=== PATIENT | male | born 1970 | race Two or more races ===

== ENCOUNTER 2017-08-13 12:39 | Inpatient (IN) | payer OTHER ==
[~2017-08-13] VITALS: Ht 170.2 cm; Wt 72.6 kg
--- NOTE | 2017-08-13 12:50 | NUR ---
[facility] FROM [facility] C/O LEFT HEEL NON HEALING WOUND. HEELS WRAPPED, CLEAN AND DRY. NO S/S OF INFECTION. PATIENT A/OX 4, BREATHING EVEN AND UNLABORED. NO SOB, NAD, VITALS STABLE. SAFETY AND COMFORT MEASURES IN PLACE. AWAITING MD ORDERS.
--- NOTE | 2017-08-13 14:31 | NUR ---
CALLED [facility] FOR TRANSPORT TO [facility], ETA 1500, TRIP #[id number]
--- NOTE | 2017-08-13 14:49 | NUR ---
CALLED [facility] TO CANCEL TRANSPORT
--- NOTE | 2017-08-13 14:55 | NUR ---
ANUM PAGED, DR.SAM Dorman SENIOR ORACLE SOA DEVELOPER
[2017-08-13 15:32] LABS: BASOPHILS # (AUTO) 0.1 /CMM (0.0-0.2); BASOPHILS % (AUTO) 1.3 % (0.0-2.0); EOSINOPHILS % (AUTO) 2.8 % (0.0-6.0); HEMATOCRIT 34 % (39-51); HEMOGLOBIN 12.2 g/dL (13.5-17.5); MEAN CORPUSCULAR HEMOGLOBIN 40 PG (26.0-33.0); MEAN CORPUSCULAR HGB CONC 36 g/dl (31.0-36.0); MEAN CORPUSCULAR VOLUME 111 fL (80-96); MONOCYTES # (AUTO) 1.1 /CMM (0.1-1.30); MONOCYTES % (AUTO) 18.2 % (2.0-12.0); NEUTROPHILS # (AUTO) 3.6 /CMM (1.8-8.9); NEUTROPHILS % (AUTO) 61.7 % (43.0-81.0); PLATELET COUNT (AUTO) 103 /CMM (150-450); RDW COEFFICIENT OF VARIATION 15.1 (11.5-15.0); RED BLOOD CELL COUNT(AUTO) 3.08 MIL/uL (4.5-6.0)
--- NOTE | 2017-08-13 15:44 | NUR ---
NEW IV STARTED ON LAC, 18G.
[2017-08-13 15:45] LABS: INR 1.66 (0.85-1.15)
[2017-08-13 15:46] LABS: CREATININE 0.7 mg/dL (0.6-1.3); POTASSIUM 4.5 mmol/L (3.5-5.1)
--- NOTE | 2017-08-13 15:50 | NUR ---
MS 324-1 FOR NON HEALING WOUND TO L ANKLE, DR.SAM Dorman ADMITTING
--- NOTE | 2017-08-13 16:08 | NUR ---
REPORT GIVEN TO ALBAN MELO FOR SOPHIA UPON ADMISSION.
[2017-08-13] MEDS ORDERED: MULT-213 PO (16:22)
[2017-08-13] MEDS ORDERED: RIFA550T PO (16:22)
[2017-08-13] MEDS ORDERED: CLOT15CR63 TP (16:22)
[2017-08-13] MEDS ORDERED: LACT10SO PO (16:22)
[2017-08-13] MEDS ORDERED: NA P133E RC (16:22)
[2017-08-13] MEDS ORDERED: AMIN30LI2 PO (16:22)
[2017-08-13] MEDS ORDERED: ASCO500T9 PO (16:22)
[2017-08-13] MEDS ORDERED: BISA10SU61 RC (16:22)
[2017-08-13] MEDS ORDERED: NICO-677 TD (16:22)
[2017-08-13] MEDS ORDERED: MAGN400O6 PO (16:22)
[2017-08-13] MEDS ORDERED: SPIR100T3 PO (16:22)
[2017-08-13] MEDS ORDERED: ACET325T53 PO (16:22)
[2017-08-13] MEDS ORDERED: ACET-73 PO (16:22)
[2017-08-13] MEDS ORDERED: ONDANSETRON HCL/PF 4 MG/2 ML VIAL IVP PRN (16:30)
[2017-08-13] MEDS ORDERED: MAGNESIUM HYDROXIDE 30 ML UDC PO PRN ×2 (16:30→18:00)
[2017-08-13] MEDS ORDERED: MAG HYDROX/AL HYDROX/SIMETH 30 ML UDC PO PRN (16:30)
[2017-08-13] MEDS ORDERED: ACETAMINOPHEN 325 MG TABLET PO PRN (16:30)
[2017-08-13] MEDS ORDERED: ZOLPIDEM TARTRATE 5 MG TABLET PO PRN (16:30)
[2017-08-13] MEDS ORDERED: HYDROCODONE/APAP 5/325MG 1 EACH TABLET PO PRN (16:30)
[2017-08-13] MEDS ORDERED: Z GUARD REMEDY 2 OZ OINT TP PRN (16:30)
--- NOTE | 2017-08-13 16:38 | NUR ---
PATIENT TRANSPORTED TO [facility] VIA WHEELCHAIR. [facility] TO PROVIDE SOPHIA.
[2017-08-13 16:59] LABS: BAND % (MANUAL) 6 % (0.0-5.0); EOSINOPHILS % (MANUAL) 4 % (0-4); LYMPHOCYTES % (MANUAL) 22 % (16-48); MONOCYTES % (MANUAL) 10 % (0-11.0); NEUTROPHILS % (MANUAL) 58 (42-76)
[2017-08-13 17:46] VITALS: BP 122/69
[2017-08-13] MEDS ORDERED: NA PHOS,M-B/NA PHOS,DI-BA 1 EA ENEMA RC PRN (18:00)
[2017-08-13] MEDS ORDERED: MISCELLANEOUS MED 1 EA EA PO PRN (18:00)
[2017-08-13] MEDS ORDERED: BISACODYL SUPP (10 MG) 10 MG/SUPP.RECT SUPP.RECT RC PRN (18:00)
--- NOTE | 2017-08-13 18:00 | NUR ---
CUSTOMER EXPERT PATIENT A/OX4, VERBALLY RESPONSIVE, BREATHING EVEN AND UNLABORED, NO DISTRESS NOTED, PATIENT ADMITTED WITH DX OF LEFT FOOT NON-HEALING ULCER UNDER DR. LAVINIA HERNANDEZ. ORDERS RECEIVED AND NOTED. PATIENT'S SKIN ASSESSMENT COMPLETED, PHOTOS TAKEN AND PLACED IN CHART. PATIENT INDEPENDENT WITH BED MOBILITY, AND AMBULATE INDEPENDENTLY. PATIENT'S LEFT AC #18 PATENT AND INTACT, VITALS STABLE, PATIENT IS SCHEDULED TO HAVE SURGERY TOMORROW BY DR. LEON. PATIENT WILL BE NPO AFTER MIDNIGHT TONIGHT. NEEDS ATTENDED AND MET, ATE DINNER AND TOLERATED WELL, CALL LIGHT WITHIN REACH, SAFETY MEASURES IN PLACED, WILL ENDORSE TO ANIMAL ASSISTED THERAPIST FOR SOPHIA.
--- NOTE | 2017-08-13 19:35 | NUR ---
MS/HARPOONER; RECEIVED PT'S REPORTS FROM THE DAY SHIFT RN FOR CONTINUITY OF CARE. AT THIS TIME PT IN BED AWAKE , ALERT AND ORIENTED X3 . PT IS AWARE OF HIS SURGERY TOMORROW AT 0730. PT REMINDED ON NPO AFTER MIDNIGHT TONIGHT. PT IS AWARE URINE SPECIMEN IS STILL NEEDED FOR EXAM. HL ON LAC INTACT FLUSHED WITH NS AND PATENT. LT FOOT SLIGHT SWOLLEN AND ELEVATED WITH PILLOW. HAS MEPILEX DRESSING ON. BED ON LOWER POSITION AND LOCKED FOR SAFETY. SIDE RAILS X 2 ARE UP FOR SAFETY. CONTINUE TO MONITOR . CALL LIGHT WITHIN REACH.
[2017-08-13 20:00] VITALS: BP 134/80
--- NOTE | 2017-08-13 20:45 | NUR ---
MS/ADULT MINISTRIES DIRECTOR; PT SIGNED ALL THE CONSENTS FOR SURGERY TOMORROW.
[2017-08-13] MEDS: RIFAXIMIN 550 MG TABLET PO SCH (21:04)
--- NOTE | 2017-08-13 21:10 | NUR ---
MS/AIRPORT BAGGAGE SCREENER; PT VOIDED 200 ML CLEAR RACHEL URINE. SPECIMEN OBTAINED FOR UA. I CALLED THE LAB. TO DEVELOPMENT SPEC THE SPECIMEN AND A MALE LAB. TECH AWARE AND HE SAID OK I WILL DEVELOPMENT SPEC.
--- NOTE | 2017-08-14 | NUR ---
MS/RELINER; PT IN BED SLEEPING. BREATHING NON LABORED. NPO AFTER MIDNIGHT OBSERVED.
[2017-08-14 05:31] VITALS: BP 117/55
[2017-08-14 06:18] LABS: APPEARANCE,URINE CLEAR (CLEAR); BILIRUBIN,URINE 1+ (NEGATIVE); BLOOD, URINE NEGATIVE Ery/uL (NEGATIVE); COLOR,URINE DARK YELLO (YELLOW); KETONES,URINE NEGATIVE (NEGATIVE); LEUKOCYTE ESTERASE ,URINE NEGATIVE (NEGATIVE); NITRITE, URINE NEGATIVE (NEGATIVE); PROTEIN,URINE NEGATIVE (NEGATIVE); UGLUCOSE NEGATIVE (NEGATIVE)
[2017-08-14 06:25] LABS: BASOPHILS % (AUTO) 0.2 % (0.0-2.0); EOSINOPHILS % (AUTO) 3.4 % (0.0-6.0); HEMATOCRIT 36 % (39-51); HEMOGLOBIN 12.7 g/dL (13.5-17.5); LYMPHOCYTES # (AUTO) 1.1 /CMM (0.8-4.8); LYMPHOCYTES % (AUTO) 17.9 % (20.0-44.0); MEAN CORPUSCULAR HEMOGLOBIN 40 PG (26.0-33.0); MEAN CORPUSCULAR HGB CONC 35 g/dl (31.0-36.0); MEAN CORPUSCULAR VOLUME 114 fL (80-96); MONOCYTES # (AUTO) 1.1 /CMM (0.1-1.30); NEUTROPHILS % (AUTO) 61.5 % (43.0-81.0); PLATELET COUNT (AUTO) 86 /CMM (150-450); RDW COEFFICIENT OF VARIATION 15.6 (11.5-15.0); WHITE BLOOD COUNT (AUTO) 6.4 K/uL (4.3-11.0)
[2017-08-14 06:26] LABS: BACTERIA,URINE None seen /HPF (None Seen); RBC,URINE NONE SEEN /HPF (0-2); SQUAMOUS EPITHELIAL CELL,UR Few /HPF (None Seen); WBC,URINE 0-2 /HPF (0-3)
--- NOTE | 2017-08-14 06:40 | NUR ---
MS/UNIT COORDINATOR; OR CALLED AND REPORTS GIVEN.
[2017-08-14 06:43] LABS: ALANINE AMINOTRANSFERASE 42 U/L (12-78); ALBUMIN 1.7 g/dL (3.4-5.0); ALKALINE PHOSPHATASE 421 U/L (46-116); ASPARTATE AMINOTRANSFERASE 74 U/L (15-37); BILIRUBIN,TOTAL 5.1 mg/dL (0.2-1.0); CALCIUM, SERUM 7.8 mg/dL (8.5-10.1); CARBON DIOXIDE 22 mmol/L (21-32); CHLORIDE 105 mmol/L (98-107); CREATININE 0.7 mg/dL (0.6-1.3); GLUCOSE 83 mg/dL (74-106); MAGNESIUM 1.3 mg/dL (1.8-2.4); PHOSPHORUS 3.4 mg/dL (2.5-4.9); POTASSIUM 4.5 mmol/L (3.5-5.1); SODIUM SERUM 134 mmol/L (136-145); TOTAL PROTEIN, SERUM 7.6 g/dL (6.4-8.2); UREA NITROGEN, BLOOD 10 mg/dL (7-18)
[2017-08-14 06:46] LABS: LDL 23 mg/dL (0-99); THYROID STIMULATING HORMONE 1.928 uIU/mL (0.358-3.74); TRIGLYCERIDES 39 mg/dL (30-150)
--- NOTE | 2017-08-14 06:50 | NUR ---
MS/CUSTOMER PRICING MANAGER; PT SLEPT FINE. DENIES PAIN. AT THIS TIME REPORTS GIVEN TO LORIE BEST
[2017-08-14] MEDS ORDERED: BUPIVACAINE 0.25% 75 MG/30 ML VIAL ONE (06:55)
[2017-08-14] MEDS ORDERED: ANESTHESIA TRAY IN PYXIS 1 EA TRAY MC ONE (06:55)
[2017-08-14] MEDS ORDERED: LIDOCAINE 0.5% HCL 50 ML VIAL ONE (06:56)
[2017-08-14] MEDS ORDERED: MINERAL OIL 10 ML VIAL MC ONE (06:56)
--- NOTE | 2017-08-14 06:59 | NUR ---
MS RN OPENING NOTE RECEIVED BEDSIDE SBAR REPORT ON THE PATIENT. PATIENT IS A/OX4, ORIENTED TO OWN ABILITIES. AWAKE AND RESPONSIVE IN BED. BED IS LOCKED IN LOWEST POSITION, SIDE RAILS UP X2. URINAL AT THE BEDSIDE. PATIENT IS AMBULATORY. DENIES PAIN/DISCOMFORT AT THIS TIME. CHEST RISING EQUALLY, BILATERALLY. SPO2 98% ON ROOM AIR. PATIENT IS SCHEDULED TO GO TO HAVE LLE WOUND DEBRIDEMENT WITH SPLIT THICKNESS SKIN GRAFT PERFORMED BY DR REESE. CONSENT SIGNED. DISCUSSED WITH DR REESE AND THE PATIENT AT THE BEDSIDE. PATIENT VERBALIZED UNDERSTANDING OF THE CONSENT AND PROCEDURE. ALL NEEDS ARE MET. WILL CONTINUE TO ASSES/MONITOR THROUGHOUT THE SHIFT.
--- NOTE | 2017-08-14 07:03 | NUR ---
PATIENT LEFT THE FLOOR VIA BED BEING TRANSPORTED TO OR IN A STABLE CONDITION. DR REESE AWARE.
[2017-08-14 07:05] LABS: HDL CHOLESTEROL 10 mg/dL (40-60)
[2017-08-14 07:33] LABS: EOSINOPHILS % (MANUAL) 1 % (0-4); LYMPHOCYTES % (MANUAL) 10 % (16-48); MONOCYTES % (MANUAL) 11 % (0-11.0); NEUTROPHILS % (MANUAL) 78 (42-76)
[2017-08-14] MEDS ORDERED: LIDOCAINE 0.5%-EPI 1:200,000 50 ML VIAL ONE (07:59)
[2017-08-14 08:00] VITALS: BP 117/55
[2017-08-14] MEDS ORDERED: diphenhydrAMINE HCL 50 MG/ML VIAL ONE (08:48)
[2017-08-14] MEDS ORDERED: HYDROMORPHONE INJ 2 MG/ML DISP.SYRIN ONE (08:51)
[2017-08-14] MEDS: CLOTRIMAZOLE 1% 15 GM TUBE TP SCH (09:00)
[2017-08-14] MEDS: LACTULOSE 10 G/15 ML UDC (PYXIS) PO SCH ×2 (09:36→17:41)
[2017-08-14 09:37] VITALS: BP 142/71
--- NOTE | 2017-08-14 09:37 | NUR ---
PATIENT RETURNED BACK FROM OR. WOUND VAC PRESENT. SET TO 100MM HG CONTINUALLY ORDERED. PATIENT IS ALER, ORIENTED X4, AWAKE AND RESPONSIVE. DENIESA PAIN. SPO2 98% ON 2L OXYGEN. MEDICATIONS ADMINISTERED. VS WNL (SEE VS CHART).
[2017-08-14] MEDS: NICOTINE PATCH (21MG) 21 MG PATCH.TD24 TD SCH (09:38)
[2017-08-14] MEDS: ASCORBIC ACID 500 MG TABLET PO SCH (09:40)
[2017-08-14] MEDS: RIFAXIMIN 550 MG TABLET PO SCH ×2 (09:41→21:25)
[2017-08-14] MEDS: SPIRONOLACTONE 25 MG TABLET PO SCH (09:41)
[2017-08-14] MEDS: Magnesium 1GM/D5W 100ML PREMIX 100 ML IV SCH ×2 (12:17→13:18)
--- NOTE | 2017-08-14 12:17 | NUR ---
ADMINISTERING MAGNESIUM PASSED SCHEDULED ADMINISTRATION PER PATIENT'S REQUEST. PATIENT DID NOT WANT TO BE CONNECTED TO THE IV, STATING THAT ANTECUBITAL LOCATION OF IV WILL CAUSE IN BEEPING WHILE HE EATS HIS LATE BREAKFAST AND LUNCH.
[2017-08-14 12:33] LABS: CHOLESTEROL < 50 mg/dL (<200)
[2017-08-14 16:19] VITALS: BP 142/71
--- NOTE | 2017-08-14 19:27 | NUR ---
MS RN OPENING NOTE RECEIVE PATIENT AWAKE IN BED, A/O X 4, STABLE NO FACIAL GRIMACING NOTED FOR PAIN. NO SOB OR DISTRESS NOTED, CALL LIGHT WITHIN REACH. SAFETY MEASURES IMPLEMENTED. WILL CONTINUE TO MONITOR THROUGHOUT SHIFT.
--- NOTE | 2017-08-14 19:47 | NUR ---
MS RN CLOSING NOTE GAVE BEDSIDE SBAR REPORT ON THE PATIENT. PATIENT IS A/OX4, ORIENTED TO OWN ABILITIES. AWAKE AND RESPONSIVE IN BED. BED IS LOCKED IN LOWEST POSITION, SIDE RAILS UP X2. URINAL AT THE BEDSIDE. WOUND VAC AT ORDERED SETTINGS. DENIES PAIN/DISCOMFORT AT THSI TIME. ALL NEEDS ARE MET. ENDORSED TO THE HOSPITAL CLERK NURSE FOR SOPHIA.
[2017-08-14 20:00] VITALS: BP 136/74
--- NOTE | 2017-08-15 06:31 | NUR ---
MS RN CLOSING NOTES PT COMFORTABLY ASLEEP AND EASILY AWAKEN, A/O X 4, IN STABLE CONDITION. RESPIRATION EVEN AND UNLABORED. KEPT CLEAN AND DRY AND COMFORTABLE, ALL NURSING CARE RENDERED. NEEDS ATTENDED AND ANTICIPATED, GOOD SKIN CARE PROVIDED. FREQUENT VISUAL CHECK DONE FOR SAFETY EVERY 2 HOURS. ON LOW BED AT ALL TIMES TO ENSURE SAFETY. SAFE HAZARD FREE ENVIRONMENT PROVIDED. NO COMPLAINS OF PAIN. ASSIST REPOSITION EVERY 2 HOURS. CALL LIGHT WITHIN EASY TO REACH. WILL ENDORSE NEXT SHIFT CONTINUITY OF CARE. NO COMPLAINS OF PAIN.
[2017-08-15 06:51] LABS: EOSINOPHILS % (AUTO) 0.1 % (0.0-6.0); HEMATOCRIT 34 % (39-51); HEMOGLOBIN 12.1 g/dL (13.5-17.5); LYMPHOCYTES # (AUTO) 0.7 /CMM (0.8-4.8); LYMPHOCYTES % (AUTO) 5.1 % (20.0-44.0); MEAN CORPUSCULAR HEMOGLOBIN 40 PG (26.0-33.0); MEAN CORPUSCULAR HGB CONC 35 g/dl (31.0-36.0); MEAN CORPUSCULAR VOLUME 115 fL (80-96); MONOCYTES # (AUTO) 1.2 /CMM (0.1-1.30); MONOCYTES % (AUTO) 8.8 % (2.0-12.0); NEUTROPHILS # (AUTO) 11.5 /CMM (1.8-8.9); PLATELET COUNT (AUTO) 103 /CMM (150-450); RED BLOOD CELL COUNT(AUTO) 2.99 MIL/uL (4.5-6.0); WHITE BLOOD COUNT (AUTO) 13.4 K/uL (4.3-11.0)
[2017-08-15 07:10] LABS: CALCIUM, SERUM 8.3 mg/dL (8.5-10.1); CREATININE 0.8 mg/dL (0.6-1.3); MAGNESIUM 1.7 mg/dL (1.8-2.4); PHOSPHORUS 2.6 mg/dL (2.5-4.9); POTASSIUM 4.3 mmol/L (3.5-5.1)
[2017-08-15 08:00] VITALS: BP 121/68
--- NOTE | 2017-08-15 08:04 | NUR ---
MS RN OPENING NOTE RECEIVED BEDSIDE SBAR REPORT ON THE PATIENT. PATIENT IS A/OX4, ORIENTED TO OWN ABILITIES. AWAKE AND RESPONSIVE IN BED. BED IS LOCKED IN LOWEST POSITION, SIDE RAILS UP X2. URINAL AT THE BEDSIDE. PATIENT IS AMBULATORY. DENIES PAIN/DISCOMFORT AT THIS TIME. CHEST RISING EQUALLY, BILATERALLY. SPO2 97% ON ROOM AIR. WOUND VAC IN PLACE WITH PRESCRIBED SETTINGS. ALL NEEDS ARE MET. WILL CONTINUE TO ASSES/MONITOR THROUGHOUT THE SHIFT.
[2017-08-15] MEDS: CLOTRIMAZOLE 1% 15 GM TUBE TP SCH (09:00)
[2017-08-15] MEDS: LACTULOSE 10 G/15 ML UDC (PYXIS) PO SCH ×2 (09:31→17:12)
[2017-08-15] MEDS: ASCORBIC ACID 500 MG TABLET PO SCH (09:32)
[2017-08-15] MEDS: NICOTINE PATCH (21MG) 21 MG PATCH.TD24 TD SCH (09:32)
[2017-08-15] MEDS: SPIRONOLACTONE 25 MG TABLET PO SCH (09:32)
[2017-08-15] MEDS: RIFAXIMIN 550 MG TABLET PO SCH (09:32)
[2017-08-15] MEDS: Magnesium 1GM/D5W 100ML PREMIX 100 ML IV SCH ×2 (10:37→12:50)
--- NOTE | 2017-08-15 11:45 | NUR ---
WOUND CARE CONSULT WOUND CARE RECEIVED CONSULT FOR LEFT FOOT ULCER. WOUND CARE WILL DEFER CONSULT AND ALL TREATMENT PLANS TO SURGICAL/PODIATRY TEAM WHO ARE CURRENTLY FOLLOWING. CASE MANAGEMENT AWARE THAT PATIENT WILL NEED TO BE HOOKED UP TO PORTABLE VAC UNIT PRIOR TO DISCHARGE. SEE DPM VAC ORDERS. CASE MANAGEMENT WILL ARRANGE PORTABLE VAC UNIT TO BE DELIVERED TO PATIENT ROOM FROM THE [facility]. PATIENT WITH DOMINGA AT 16, ALL PRESSURE ULCER PREVENTION MEASURES NOTED TO BE IN PLACE. WILL SEE PRN.
[2017-08-15 16:00] VITALS: BP 120/69
--- NOTE | 2017-08-15 16:35 | NUR ---
TELEPHONE SBAR REPORT GIVEN TO LORIE JACOBO AT [facility]. PATIENT'S AMBULANCE TRANSLATOR AND INTERPRETER SET UP FOR 1800. PATIENT WILL BE TRANSFERRED WITH WOUND VAC SET TO ORDERED SETTING (100MM HG CONTINUES) PER DR REESE'S ORDER. PATIENT'S ROOM NUMBER PER LORIE JACOBO IS 26C. \DISCUSSED WITH THE PATIENT AT THE BEDSIDE. PATIENT VERBALIZED UNDERSTANDING.
--- NOTE | 2017-08-15 17:25 | NUR ---
PATIENT'S WOUND VAC SWITCHED TO THE ONE WITH WHICH THE PATIENT WILL BE DISCHARGED TO SNF. SETTINGS ORDERED SET TO 100 MM HG CONTINUES UNDER DIRECT SUPERVISION OF CHARGE NURSE PARMINDER. THE OLD WOUND VAC HAS BEEN DISCONTINUED, COLLECTION CHAMBER DISPOSED OF ACCORDING TO INSTITUTIONAL POLICY. THE WOUND VAC PLACED IN THE DIRTY UTILITY ROOM. CENTRAL SUPPLY CALLED BY LORIE ZURITA.
--- NOTE | 2017-08-15 18:10 | NUR ---
DISCHARGE EDUCATION PROVIDED AND PATIENT VERBALIZED UNDERSTANDING. WOUND VAC SET ORDERED. TELEPHONE REPORT GIVEN TO ACCEPTING FACILITY. ALL BELONGINGS ARE ACCOUNTED FOR. BELONGINGS LIST SIGNED. AWAITING FOR THE AMBULANCE.
--- NOTE | 2017-08-15 18:59 | NUR ---
IV CATHETER REMOVED WITH THE TIP INTACT. OCLUSIVE DRESSING APPLIED. PATIENT TOLERATED PROCEDURE WELL. DENIES PAIN/DISCOMFORT. SPO2 98% ON RA. VS WNL. WOUND VC IN PLACE. WOUND VAC SUPPLIES GIVEN TO AMBULANCE STAFF. ALL BELONGINGS GIVEN TO THE AMBULANCE STAFF, DISCHARGE PAPERWORK GIVEN TO THE AMBULANCE STAFF. PATIENT LEFT THE HOSPITAL VIA GURNEY ACCOMPANIED BY THE AMBULANCE STAFF IN A STABLE CONDITION.
== END 2017-08-15 18:54 | DRG 180 ==
LOC: ER 12:42 → MED 16:21
PROC: 0HBJXZZ Excision of Left Upper Leg Skin, External Approach (ICD-10-PCS; principal; 2017-08-14 08:08)
PROC: 0HRNX74 Replacement of Left Foot Skin with Autologous Tissue Substitute, Partial Thickness, External Approach (ICD-10-PCS; principal; 2017-08-14 08:08)
DX: I87.2 Venous insufficiency (chronic) (peripheral) (principal); D69.6 Thrombocytopenia, unspecified; D68.9 Coagulation defect, unspecified; E87.1 Hypo-osmolality and hyponatremia; L97.329 Non-pressure chronic ulcer of left ankle with unspecified severity; K74.60 Unspecified cirrhosis of liver; K72.90 Hepatic failure, unspecified without coma; D53.9 Nutritional anemia, unspecified; F17.210 Nicotine dependence, cigarettes, uncomplicated; I10 Essential (primary) hypertension
CPT/HCPCS: 36415; 71045-TC; 73610-TC; 80048-TC; 80053-TC; 80061-TC; 81000-TC; 83735-TC; 84100-TC; 84443-TC; 85025-TC; 85730-TC; 87081-TC; 87086-TC; 88305-TC; 88312-TC; A4606; J1170; J1200; J3475; J3490; J7030; Z7610